=== PATIENT | male | born 1990 | race Asian ===

== ENCOUNTER 2019-08-01 10:57 | Emergency (ER) | payer BC, OTHER ==
[~2019-08-01] VITALS: Ht 170.2 cm; Wt 95.3 kg
[2019-08-01] MEDS ORDERED: CEFTRIAXONE 500 MG VIAL IM ONE (12:00)
[2019-08-01 12:02] LABS: *BILIRUBIN,URIN NEGATIVE (NEGATIVE); *BLOOD, URINE NEGATIVE (NEGATIVE); *CLARITY,URINE CLEAR (CLEAR); *COLOR,URINE LIGHT YELLOW (YELLOW); *KETONES,URINE NEGATIVE (NEGATIVE); *UROBILINOGEN,URINE 0.2 E.U./dl (NORMAL); LEUKOCYTE ESTERASE ,URINE NEGATIVE (NEGATIVE); NITRITE, URINE NEGATIVE (NEGATIVE); PH,URINE 8.5 (5.0-8.0); UGLUCOSE NEGATIVE (NEGATIVE)
[2019-08-01] MEDS ORDERED: CEFTRIAXONE 500 MG VIAL ONE (12:16)
[2019-08-01] MEDS ORDERED: LIDOCAINE HCL 1% 20 ML VIAL ONE (12:17)
--- NOTE | 2019-08-01 12:20 | NUR ---
Patient discharged to home in stable conditon. Written and verbal after care instructions given. Patient verbalizes understanding of instructions.
== END 2019-08-01 12:22 | disposition home or self-care (01) ==
LOC: ER 10:57
DX: N45.1 Epididymitis (principal)
CPT/HCPCS: 76870; 81001; 87086; 96372; 99284; J0696; J3490; A4663

== ENCOUNTER 2020-05-09 19:48 | Emergency (ER) | payer BC, OTHER ==
[~2020-05-09] VITALS: Ht 172.7 cm; Wt 104.3 kg
--- NOTE | 2020-05-09 20:05 | NUR ---
Dr. Klein at bedside for MSE
[2020-05-09] MEDS ORDERED: TDAP DIPH,PERTUSS,TET VAC/PF 0.5 ML DISP.SYRIN IM ONE ×2 (20:15→20:16)
[2020-05-09] MEDS ORDERED: SULFAMETH/TRIMETH 800/160 MG TABLET PO ONE (20:15)
[2020-05-09] MEDS ORDERED: SULFAMETH/TRIMETH 800/160 MG TABLET ONE (20:16)
--- NOTE | 2020-05-09 20:34 | NUR ---
Patient discharged to home in stable condition. Written and verbal after care instructions given. Patient verbalizes understanding of instructions. Stressed follow up or return to ER for worsening s/s. AA/Ox4. able to speak in complete sentences. follows commands respirations even and unlabored no s/s cardiovascular distress denies n/v/d all belongings with pt ambulatory with steady gait
[2020-05-09 20:51] VITALS: BP 135/89
== END 2020-05-09 20:34 | disposition home or self-care (01) ==
LOC: ER 19:49
DX: L03.116 Cellulitis of left lower limb (principal); S80.812A Abrasion, left lower leg, initial encounter; X58.XXXA Exposure to other specified factors, initial encounter; Y92.89 Other specified places as the place of occurrence of the external cause; Z82.49 Family history of ischemic heart disease and other diseases of the circulatory system
CPT/HCPCS: 90715; A4663

== ENCOUNTER 2021-05-21 09:57 | Emergency (ER) | payer BC, OTHER ==
[~2021-05-21] VITALS: Ht 170.2 cm; Wt 112.0 kg
[2021-05-21] MEDS ORDERED: LOSA25TA3 PO (10:08)
--- NOTE | 2021-05-21 10:11 | NUR ---
31 years old male alert, oriented x4 walking to er c/o pain burning with urination, urine clear/yellow, denies penis redness, itch, drainage, no flank pain, no fever.
[2021-05-21 10:34] LABS: *BILIRUBIN,URIN NEGATIVE (NEGATIVE); *BLOOD, URINE NEGATIVE (NEGATIVE); *CLARITY,URINE CLEAR (CLEAR); *COLOR,URINE YELLOW (YELLOW); *KETONES,URINE NEGATIVE (NEGATIVE); *UROBILINOGEN,URINE 0.2 E.U./dl (NORMAL); LEUKOCYTE ESTERASE ,URINE NEGATIVE (NEGATIVE); NITRITE, URINE NEGATIVE (NEGATIVE); UGLUCOSE NEGATIVE (NEGATIVE)
[2021-05-21] MEDS ORDERED: DOXY100T2 PO (10:42)
[2021-05-21] MEDS ORDERED: DOXYCYCLINE HYCLATE 100 MG TABLET PO ONE (10:45)
[2021-05-21] MEDS ORDERED: CEFTRIAXONE 500 MG VIAL IM ONE (10:45)
[2021-05-21] MEDS ORDERED: DOXYCYCLINE HYCLATE 100 MG TABLET ONE (11:09)
[2021-05-21] MEDS ORDERED: CEFTRIAXONE 500 MG VIAL ONE (11:11)
--- NOTE | 2021-05-21 11:14 | NUR ---
patient condition stable d/c home with instructions after care reviewed understood left er via self ambulatory with steady gait prescription given.
== END 2021-05-21 11:16 | disposition home or self-care (01) ==
LOC: ER 09:57
DX: A64 Unspecified sexually transmitted disease (principal); I10 Essential (primary) hypertension; Z72.51 High risk heterosexual behavior
CPT/HCPCS: 81003; 87086; 96372; 99283; J0696; A4663